=== PATIENT | female | born 1980 | race Caucasian/White ===

== ENCOUNTER 2025-08-27 14:04 | Outpatient (AMB) | payer MEDICAID, SELFPAY ==
--- NOTE | 2025-08-27 14:17 | AMB.OBINITIA ---
Vital Signs 08/27/25 14:20 Height 1.63 m Height Method Stated Weight 103.136 kg Weight Measurement Method Standing Scale BMI 39.0 BP 111/75 Blood Pressure Source Automatic Cuff Blood Pressure Location Right Upper Arm Position Sitting Respiration 18 Pulse 100 Pulse Source Monitor Temp 97.9 F Temp Source Temporal Artery Scan Pulse Oximetry (%) 96 Oxygen Delivery Method Room Air Allergies/Home Meds Allergies & Medications Allergies No Known Allergies Allergy (Verified 08/27/25 14:21) Medication Reconciliation vits no.126-ferrous fum 28 mg iron-folic acid 800 mcg tablet (Classic ) 1 tab PO DAILY 90 days #90 tabs 08/27/25 [Rx] Intake Visit Data Collection New Patient or Established: New Patient (never been to [facility]) Reason for Visit:: OBI Seen by Clinical Staff ONLY (RN/MA): No Customer Operations Associate Required: No Do You Feel Safe at Home: Yes Authorities Contacted: N/A PCP or OBGYN visit in last 3 months: No Hx Now: Yes Are you currently on any form of Control: No Pain Present Currently: No Pain Scale Used: Florentino-Beebe/Numerical Pain scale:: 0 Smoking Status Smoking Status: Never smoker Immunizations Flu Vaccine in the Last 12 Months: No Flu Vaccine Exclusion Criteria: No Exclusion Criteria Questionnaires Covid-19 Vaccine Questionnaire Has patient been vacinated for Covid-19 Have you been vacinated for Covid-19: No PHQ-9 PHQ-2 Over the last 2 weeks, how often have you been bothered by any of the following problems? 1. Little interest or pleasure in doing things: not at all 2. Feeling down, depressed, or hopeless: not at all Total score: 0 PHQ-9 3. Trouble falling or staying asleep, or sleeping too much: Not at all 4. Feeling tired or having little energy: Not at all 5. Poor appetite or overeating: Not at all 6. Feeling bad about yourself - or that you are a failure or have let yourself or your family down: Not at all 7. Trouble concentrating on things, such as reading the newspaper or watching television: Not at all 8. Moving or speaking so slowly that other people could have noticed? - Or the opposite - being so fidgety or restless that you have been moving around a lot more than usual: not at all 9. Thoughts that you would be better off or of hurting yourself in some way: Not at all Total score: 0 If you checked off any problems, how difficult have these problems made it for you to do your work, take care of things at home, or get along with other people?: not difficult at all Source: Developed by Drs. John Busby, Rosemary Diaz, Donnell Musa and colleagues, with an educational samia from [employer]. Depression screen completed yes Social History Living Situation History Marital Status: Legally Lives With: Family Housing: House Tobacco History Smoking Status: Never smoker Second Hand Smoke Exposure: No Alcohol History Alcohol Intake: Never Domestic Abuse History Do You Feel Safe at Home: Yes History of Present Illness HPI Narrative 44 years old at ? 35 weeks by US today states had Us in [facility] in June and was told her EDC is 10/18/2025 she has h/o c sections and also labs from [facility] on 07/29/2025 are c/w amphetamine positive start biweekly NST/BPP OB Initial Visit OB Flowsheet OB Flowsheet Initial Weight: Not Recorded Date <del>?</del> EGA Weight BP Alb Glu CTX Pres Fundal ht FHR Mov Dilation Station Effacement Hx Notes Visit Note 08/27/25 <del>?</del> 32w 3d 103.136 kg 111/75 35 34 144 active Menstrual History Menstrual reliability: unknown Menstrual regularity: irregular Monthly: No OB History : 3 Para: 1 # of Living Children: 1 Delivery History 1st : Delivery complications: STILL UMBILICAL CORD 2nd : date: 01/25/09 sex: male Gestational age at delivery (weeks): 40 Delivery type: Infection History & Risk Evaluation History of STDs: none Genetic Screening & History Genetic Screening/Teratology Counseling - Includes patient, baby's father, or anyone in either family with: 1. Patient's age 35 years or older as of estimated date of delivery: Yes 2. Thalassemia (Occitan, Chinese, Mediterranean, or Background); MCV less than 80: No 3. Neural Tube Defect (Meningomyelocele, Spina Bifida, or Anencephaly): No 4. Congenital Heart Defect: No 5. Down Syndrome: No 6. Cole-Sachs (Ashkenazi Christian, Cajun, Swiss Menominee): No 7. Jimmy Disease (Ashkenazi Christian): No 8. Familial Dysautonomia (Ashkenazi Christian): No 9. Sickle Cell Disease or Trait (): No 10. Hemophilia or other blood disorders: No 11. Muscular Dystrophy: No 12. Cystic Fibrosis: No 13. Tippah's Chorea: No 14. Mental Retardation/Autism: No 15. Other inherited genetic or chromosomal disorder: No 16. Maternal Metabolic Disorder (EG,TYPE 1 Diabetes, PKU): No 17. Patient or baby's father had a child with defects not listed above: No 18. Recurrent loss or a stillbirth: No 19. Medications (including supplements, vitamins, herbs or otc drugs)/illicit/recreational drugs/alcohol since last menstrual period: No 20. Any other: No Infection History Other (see comments) Source: [employer] [place] [employer] Results Objective Laboratory: 07/29/2025 O positive / Rubella NI, RPR NR, HbSAg negative HCV NR HIV NR GC and CT negative Hb 11.2 platelets 333UDS methamphetamine positive One hour GTT is 125 Office Procedures OBC Clinic LOC & Office Proc's Nursing/Assessment Patient Status: Initial/New Patient OB Clinic Nursing Assessment: Medication Reconciliation, Update PMH in EMR and Vital Signs OB Clinic Coordination of Care: Complex Care and Chronic Disease 1-5, Education Complex Pt/Fam, Consent,records obtained, informed consent, Lab and Imaging orders, Results/Orders obtained and Staff clarify orders Special Needs: Heart tones New Patient Charge New Patient Point Assignment: [id number] New Patient Point Charge: WELLNESS ASSISTANT Level 4 ([id number]) Assessment & Plan Diagnosis / Problem List (1) Previous section: Status: Acute (2) : Status: Acute Qualifiers: Weeks of gestation: 32 weeks Qualified Code(s): Z3A.32 - 32 weeks gestation of (3) Late care affecting : Status: Acute Qualifiers: Trimester: third trimester Qualified Code(s): O09.33 - Supervision of with insufficient care, third trimester (4) Advanced maternal age (AMA) in : Status: Acute (5) Uterine size date discrepancy, antepartum: Status: Acute Additional Plan labs next visit add HbA1c and GTT or Random Blood glucose Ordered formal Us from [facility] Ordered NST biweekly
[2025-08-27 14:20] VITALS: BP 111/75; PULSE 100; RESP 18; TEMP 36.6; O2SAT 96; BMI 39.0
== END 2025-08-27 15:09 | disposition home or self-care (01) ==
LOC: HODSOBC 14:04
PROVIDERS: Supervising Provider Obstetrics & Gynecology; Visit Provider Obstetrics & Gynecology
DX: O09.293 Supervision of pregnancy with other poor reproductive or obstetric history, third trimester (principal); O34.219 Maternal care for unspecified type scar from previous cesarean delivery; O09.33 Supervision of pregnancy with insufficient antenatal care, third trimester; O09.523 Supervision of elderly multigravida, third trimester; O09.893 Supervision of other high risk pregnancies, third trimester; O26.843 Uterine size-date discrepancy, third trimester; Z3A.32 32 weeks gestation of pregnancy
CPT/HCPCS: 99204; G0463

== ENCOUNTER → 2025-09-02 13:23 | Outpatient (AMB) | payer MEDICAID, SELFPAY ==
[2025-09-02 13:54] VITALS: BP 124/76; PULSE 102; RESP 18; TEMP 36.2; O2SAT 98; BMI 39.7
--- NOTE | 2025-09-02 13:54 | OBCLNT_ITS ---
Vital Signs 09/02/25 13:54 Height 1.63 m Height Method Stated Weight 105.687 kg Weight Measurement Method Standing Scale BMI 39.7 BP 124/76 Blood Pressure Source Automatic Cuff Blood Pressure Location Left Upper Arm Position Standing Respiration 18 Pulse 102 H Pulse Source Monitor Temp 97.2 F Temp Source Oral Pulse Oximetry (%) 98 Oxygen Delivery Method Room Air Allergies/Home Meds Allergies & Medications Allergies No Known Allergies Allergy (Verified 09/02/25 13:58) Medication Reconciliation vits no.126-ferrous fum 28 mg iron-folic acid 800 mcg tablet (Classic ) 1 tab PO DAILY 90 days #90 tabs 08/27/25 [Rx Confirmed 09/02/25] Intake Visit Data Collection New Patient or Established: Established Patient (seen at [facility] within 3 years) Reason for Visit:: OBC Seen by Clinical Staff ONLY (RN/MA): No Oil Expeller Required: No Do You Feel Safe at Home: Yes Authorities Contacted: N/A PCP or OBGYN visit in last 3 months: Yes Date of Last PCP or OBGYN visit: 08/27/25 Hx Now: Yes Are you currently on any form of Control: No Pain Present Currently: No Pain Scale Used: Florentino-Beebe/Numerical Pain scale:: 0 Smoking Status Smoking Status: Never smoker Immunizations Flu Vaccine in the Last 12 Months: No Flu Vaccine Exclusion Criteria: Refused by Patient Questionnaires Covid-19 Vaccine Questionnaire Has patient been vacinated for Covid-19 Have you been vacinated for Covid-19: No PHQ-9 PHQ-2 Over the last 2 weeks, how often have you been bothered by any of the following problems? 1. Little interest or pleasure in doing things: not at all 2. Feeling down, depressed, or hopeless: not at all Total score: 0 PHQ-9 3. Trouble falling or staying asleep, or sleeping too much: Not at all 4. Feeling tired or having little energy: Not at all 5. Poor appetite or overeating: Not at all 6. Feeling bad about yourself - or that you are a failure or have let yourself or your family down: Not at all 7. Trouble concentrating on things, such as reading the newspaper or watching television: Not at all 8. Moving or speaking so slowly that other people could have noticed? - Or the opposite - being so fidgety or restless that you have been moving around a lot more than usual: not at all 9. Thoughts that you would be better off or of hurting yourself in some way: Not at all Total score: 0 If you checked off any problems, how difficult have these problems made it for you to do your work, take care of things at home, or get along with other people?: not difficult at all Source: Developed by Drs. John Busby, Rosemary Diaz, Donnell Musa and colleagues, with an educational samia from [employer]. Depression screen completed yes Social History Living Situation History Marital Status: Single Lives With: Family Housing: House Tobacco History Smoking Status: Never smoker Second Hand Smoke Exposure: No Alcohol History Alcohol Intake: Never Domestic Abuse History Do You Feel Safe at Home: Yes Care OB Visit Log OB Flowsheet Initial Weight: Not Recorded Date -?-?-?-?-?-?-?-?-?-?-?-?- EGA Weight BP Alb Glu CTX Pres Fundal ht FHR Mov Dilation Station Effacement Hx Notes Visit Note 08/27/25 -?-?-?-?-?-?-?-?-?-?-?-?- 32w 3d 103.136 kg 111/75 35 34 144 active GREGORY Calculator Estimated Delivery Date Method Current WG Current Estimate 10/19/25 Ultrasound #1 33w 2d Other Estimates 10/01/25 Ultrasound #2 35w 6d Comments: Patient not seen today as I had to leave to the hospital Expected Delivery Route/Plan c section at 39 weeks / will be 39 weeks on 10/12/2025 / patient needs to do her labs and another US Notes Visit Date: 08/27/25 Last Updated by: Roxana Garcia MD AMA, 44 years old / late care / lab positive amphetamines and prior c section at 32 .3 weeks by Us dated 07/29/2025 at 28.2 weeks , 34 weeks by exam and is 35 weeks on limited US today S>D / late care request US from [facility]/ received later today and was done 07/29/2025 refer for formal US for dating and also start NST Biweekly / will need evaluation for GDM next visit Needs HbA1c and Glucose test next visit follow up in 1 week Office Procedures OBC Clinic LOC & Office Proc's Nursing/Assessment Patient Status: Established Patient OB Clinic Nursing Assessment: Medication Reconciliation, Update PMH in EMR and Vital Signs OB Clinic Coordination of Care: Consent,records obtained, informed consent, Education Simp Pt/Fam, Lab and Imaging orders, Results/Orders obtained and Staff clarify orders Special Needs: Heart tones Established Patient Charge Established Patient Point Assignment: 110 Established Patient Point Charge: EP Level 3 (80-115)
== END ==
LOC: HODSOBC 13:23
PROVIDERS: Supervising Provider Obstetrics & Gynecology; Visit Provider Obstetrics & Gynecology
DX: O34.212 Maternal care for vertical scar from previous cesarean delivery (principal)
CPT/HCPCS: 99213; G0463

== ENCOUNTER 2025-10-04 14:02 | Outpatient (AMB) | payer MEDICAID, SELFPAY ==
--- NOTE | 2025-10-04 14:07 | OBCLNT_ITS ---
Vital Signs 10/04/25 14:20 Height 1.63 m Height Method Stated Weight 108.012 kg Weight Measurement Method Standing Scale BMI 40.6 BP 133/85 H Blood Pressure Source Automatic Cuff Blood Pressure Location Left Upper Arm Position Sitting Respiration 18 Pulse 100 Pulse Source Monitor Temp 97.2 F Temp Source Oral Pulse Oximetry (%) 98 Oxygen Delivery Method Room Air Allergies/Home Meds Allergies & Medications Allergies No Known Allergies Allergy (Verified 10/12/25 14:45) Medication Reconciliation vits no.126-ferrous fum 28 mg iron-folic acid 800 mcg tablet (Classic ) 1 tab PO DAILY 90 days #90 tabs 08/27/25 [Rx Confirmed 10/04/25] docusate sodium 100 mg capsule 100 mg PO BID 10 days #20 caps 10/12/25 [Rx] hydrocodone 5 mg-acetaminophen 325 mg tablet 1 tab PO Q6H PRN Patient rated pain 7 to 8 7 days #12 tabs 10/12/25 [Rx] ibuprofen 800 mg tablet 800 mg PO Q8HR PRN Abdominal Pain 10 days #30 tabs 10/12/25 [Rx] Immunizations Immunizations Flu Vaccine in the Last 12 Months: No Flu Vaccine Exclusion Criteria: No Exclusion Criteria Care OB Visit Log OB Flowsheet Initial Weight: Not Recorded Date -?-?-?-?-?-?-?-?-?-?-?-?- EGA Weight BP Alb Glu CTX Pres Fundal ht FHR Mov Dilation Station Effacement Hx Notes Visit Note 08/27/25 -?-?-?-?-?-?-?-?-?-?-?-?- 32w 3d 103.136 kg 111/75 35 34 144 active 10/04/25 -?-?-?-?-?-?-?-?-?-?-?-?- 37w 6d 108.012 kg 133/85 cephalic 38 148 active GREGORY Calculator Estimated Delivery Date Method Current WG Current Estimate 10/19/25 Ultrasound #1 39w 2d Other Estimates 10/01/25 Ultrasound #2 41w 6d Expected Delivery Route/Plan c section at 39 weeks / will be 39 weeks on 10/12/2025 / patient needs to do her labs and another US Notes Visit Date: 10/04/25 Last Updated by: Roxana Garcia MD patient had an US with [facility] on 09/13/2025 and she was 36 weeks and best EDC based on early US is 10/18/2025 / she is 39 weeks on 10/19/2025 based on dating we have / Plan repeat LTCS on 10/12/2025 at 1230 pm patient is unable to come for NST/BPP / she lives in [place] / she is stating she is finding it hard to come to [place]. Adv to keep her records in hand in case she needs to go as an emergency to the nearest hospital . with previous 1 c section R/B and options of repeat LTCS vs vaginal delivery discussed with patient Visit Date: 08/27/25 Last Updated by: Roxana Garcia MD AMA, 44 years old / late care / lab positive amphetamines and prior c section at 32 .3 weeks by Us dated 07/29/2025 at 28.2 weeks , 34 weeks by exam and is 35 weeks on limited US today S>D / late care request US from [facility]/ received later today and was done 07/29/2025 refer for formal US for dating and also start NST Biweekly / will need evaluation for GDM next visit Needs HbA1c and Glucose test next visit follow up in 1 week Office Procedures OBC Clinic LOC & Office Proc's Nursing/Assessment Patient Status: Established Patient OB Clinic Nursing Assessment: Medication Reconciliation, Update PMH in EMR and Vital Signs OB Clinic Coordination of Care: Consent,records obtained, informed consent, Education Simp Pt/Fam, Lab and Imaging orders, Results/Orders obtained and Staff clarify orders Special Needs: Heart tones Established Patient Charge Established Patient Point Assignment: 110 Established Patient Point Charge: EP Level 3 (80-115) Assessment & Plan Diagnosis / Problem List (1) Advanced maternal age (AMA) in : Status: Acute (2) Previous section: Status: Acute (3) Late care affecting : Status: Acute Qualifiers: Trimester: third trimester Qualified Code(s): O09.33 - Supervision of with insufficient care, third trimester Additional Assessment Us done at [facility] on 09[facility]13/2025 confirms her dates Additional Plan Patient was given the reason for proceeding with surgery. She was given the risk benefits and options. She chose to proceed with the surgery. Risks of surgery to include risk of infection bleeding, possible injury to the surrounding organs like the urinary bladder, intestines, ureter, uterus, tubes, ovaries, nerves, blood vessels, possible risk of wound dehiscence later on or hernia development later on in future. However the surgery is done when the benefits outweigh the risks Possible risks of blood transfusion and options were also discussed. All questions answered Patient is willing to proceed with surgery.Repeat LTCS scheduled for 10/12/2025 at 12.30 and preop instructions given patient states she cannot come for NST / I cannot order NST at [place] as I do not have priveleges there . Patient can transfer care , but she states no one will take her / kick count nd labor precautions given
[2025-10-04 14:20] VITALS: BP 133/85; PULSE 100; RESP 18; TEMP 36.2; O2SAT 98; BMI 40.6
== END 2025-10-04 14:54 | disposition home or self-care (01) ==
PROVIDERS: Supervising Provider Obstetrics & Gynecology; Visit Provider Obstetrics & Gynecology
DX: O09.523 Supervision of elderly multigravida, third trimester (principal); O09.293 Supervision of pregnancy with other poor reproductive or obstetric history, third trimester; O09.33 Supervision of pregnancy with insufficient antenatal care, third trimester; O34.211 Maternal care for low transverse scar from previous cesarean delivery; Z3A.37 37 weeks gestation of pregnancy
CPT/HCPCS: 99213; G0463

== ENCOUNTER 2025-10-12 09:53 | Inpatient (IN) | payer MEDICAID, SELFPAY ==
[2025-10-12] VITALS (19 sets, daily range): BP systolic 0–152; BP diastolic 0–114; PULSE 82–99; RESP 14–21; TEMP 36.6–36.7; O2SAT 95–100; BMI 39.9
--- NOTE | 2025-10-12 10:56 | ESHP_ITS ---
Documentation for date of: 10/12/25 OB Labor/Induct. HPI History of Present Illness Chief complaint: scheduled : 3 Para: 2 Term pregnancies: 2 pregnancies: 0 Living children: 1 History of Abortions: Spontaneous and Elective: 0 History of Vaginal deliveries: 0 History of sections: Yes History of : No GREGORY: 10/19/25 Gestational Age (weeks): 39 Gestational Age (days): 0 History of present illness: Patient presents for scheduled section. No regular/painful ctx or LOF. No vaginal bleeding. Normal movement. No fevers/chills. History of Present Dating criteria: based on 3rd trimester US only Adequate Care: No (Late to care first visit in July) Ultrasounds: other (limited OB ultrasound 07/29 for dating, US with [facility] on 09/13 at 36 week) Narrative: Hx of term 2008 AMA, age 45 Insufficient care Current BMI 39.9 Denies illicit drug use, but +amphetamines on 07/29 test Hx of during labor with first Labs Maternal Blood Type: O Pos Narrative: Laboratory: 07/29/2025 O positive / Rubella NI, RPR NR, HbSAg negative HCV NR HIV NR GC and CT negative Hb 11.2 platelets 333UDS methamphetamine positive One hour GTT is 125 Review of Systems Review of Systems Narrative Review of Systems: Review of Systems Systems Reviewed: All systems reviewed, normal except as documented Constitutional Constitutional: Denies body ache(s), Denies chills, Denies fever(s) and Denies headache(s) ENT Ears, Nose, Mouth, and Throat: Denies headache(s) and Denies vertigo Cardiovascular Cardiovascular: Denies chest pain, Denies palpitations, Denies dyspnea and Denies syncope Respiratory Respiratory: Denies cough, Denies dyspnea Gastrointestinal Gastrointestinal: Denies nausea and Denies vomiting Neurologic Neurologic: Denies convulsions, Denies headache(s), Denies other visual disturbances, Denies syncope and Denies vertigo Past Medical History Family History OTHER FAMILY HX: Mother- HTN, heart disease Surgical History SURGICAL: Positive Section OTHER SURGICAL HX: cholecystectomy Social History SOCIAL: Denies illicit drug use, but +amphetamines on 07/29 test No tobacco or ETOH use. Transportation issues. Past Medical History Comments PMH COMMENT: Current BMI 39.9 Meds Home Medications and Allergies Allergies Allergy/AdvReac Type Severity Reaction Status Date / Time No Known Allergies Allergy Verified 10/04/25 14:08 OB Exam Physical Exam Vital signs: Pulse BP 95 121/93 H 10/12/25 10:32 10/12/25 10:32 Narrative: General: well developed, well nourished, no acute distress, conversant Cardiac: normal heart rate Lungs: breathing without distress Abdomen: soft, obese, gravid, non-tender, no rebound or guarding Extremities: no pain with palpation of calves Detailed Labor and Delivery Exam Membranes: intact Baseline heart rate: 120 monitor accelerations: 15x15 monitor decelerations: None FCI variability: Moderate (11-25) Contraction frequency (min): irregular OB Results Labs 10/12/25 10:40 OB Assessment & Plan Assessment and Plan (1) Previous section: Status: Acute Assessment and plan: Albina is a 45yo with SIUP at 39&0wk presenting for scheduled RLTCS per Dr. Garcia. Vitals wnl, benign exam. Reassuring assessment. PMhx/ complicated by: Hx of term 2008 AMA, age 45 Insufficient care Current BMI 39.9 Denies illicit drug use, but +amphetamines on 07/29 test Hx of infant during labor with first Plan: -Admit to L&D -Establish IV, routine labs -NPO -Counseled/consented re: section. Discussed all r/b/a to include: bleeding (possible need for blood transfusion), infection (subcutaneous, deeper layers or uterine with possible need for prolonged admission or re-admission for IV antibiotics, I&D with wound packing, etc), injury to nearby structures such as bladder, bowel, ureters, blood vessels, nerves with possible need for re- operation, pain, injury to baby, hysterectomy, DVT/PE, . Answered all questions to patient and their support person's satisfaction. -IV abx ppx: ancef 2g IV x1 -Nursing and anesthesia team aware of plan for section. Will proceed to OR when team is ready (2) Late care affecting : Status: Acute (3) Advanced maternal age (AMA) in : Status: Acute (4) Substance abuse complicating , antepartum: Status: Acute (5) Obesity affecting in third trimester: Status: Acute (2) Late care affecting Qualifiers: Trimester: third trimester Qualified Code(s): O09.33 - Supervision of with insufficient care, third trimester (5) Obesity affecting in third trimester Qualifiers: Obesity type affecting : unspecified obesity Qualified Code(s): O 99.213 - Obesity complicating , third trimester
[2025-10-12 11:01] LABS: Basophils # (Auto) 0.0 Thou/mm3 (0.0-0.2); Basophils % (Auto) 0 % (0-2.5); Eosinophils # (Auto) 0.2 Thou/mm3 (0.0-0.5); Eosinophils % (Auto) 3 % (0-10); Hematocrit 35.9 % (36.0-46.0); Hemoglobin 12.4 g/dL (12.0-16.0); Immature Granulocytes Auto 0.02 Thou/mm3 (0.00-0.00); Lymphocytes # (Auto) 1.3 Thou/mm3 (1.0-4.8); Lymphocytes % (Auto) 18 % (10-50); Mean Corpuscular HGB Conc 34.5 g/dl (31.0-37.0); Mean Corpuscular Hemoglobin 31.5 pg (25.0-35.0); Mean Corpuscular Volume 91 fL (80-100); Monocytes # (Auto) 0.5 Thou/mm3 (0.0-0.8); Monocytes % (Auto) 7 % (0-12); Neutrophils # (Auto) 4.9 Thou/mm3 (1.8-7.7); Neutrophils % (Auto) 71 % (37-80); Nucleated Red Blood Cell # 0.00 Thou/mm3 (0.00-0.00); Nucleated Red Blood Cell % 0 /100 WBC (0); Platelet Count 244 Thou/mm3 (140-440); RDW Standard Deviation 50.1 fL (36.4-46.3); Red Blood Count 3.94 Miln/mm3 (4.00-5.20); White Blood Count 6.9 Thou/mm3 (3.6-11.0)
[2025-10-12] MEDS: ceFAZolin/D5W 2 GM IV 2 GM/100 ML BAG IV ×2 (12:15→20:20)
[2025-10-12] MEDS: FAMOTIDINE INJ 10 MG/ML VIAL 2 ML 20 MG IV (12:16)
[2025-10-12] MEDS: METOCLOPRAMIDE INJ 5 MG/ML VIAL 2 ML 10 MG IVP (12:16)
[2025-10-12 13:20] LABS: Syphilis Nonreactive (Nonreactive)
--- NOTE | 2025-10-12 14:38 | ESOP_ITS ---
Operative Note - EXECUTIVE OFFICE MANAGER Procedure Date of procedure: 10/12/25 Procedure Performed: Repeat low transverse section Indication: Albina is a 45yo [id number] with SIUP at 39w0d presenting for scheduled RLTCS. She has history of 1 prior section. Pre-Op diagnosis: SIUP at 39w0d Hx of term 2008 AMA, age 45 Insufficient care Current BMI 39.9 Denies illicit drug use, but +amphetamines on 07/29 test Hx of infant during labor with first Post-Op diagnosis: SIUP at 39w0d Hx of term 2008 AMA, age 45 Insufficient care Current BMI 39.9 Denies illicit drug use, but +amphetamines on 10 test Hx of during labor with first Anesthesia type: Spinal Fluids: crystalloid and other (albumin ) Fluid amount (mL): 3,250 Urine output (mL): 100 Estimated blood loss (ml): 900 Findings: Clear amniotic fluid. Female infant in OT presentation, apgars 8/9, weight 8lb4oz. TOB 13:09 on 10/12/25. Normal appearing uterus, fallopian tubes and ovaries. Minimal scarring intra-abdominally from prior . Narrative: After obtaining informed consent, the patient was taken to the operating room. There was reassuring heart rate tracing prior. Spinal anesthesia was administered. A rader catheter was placed and bilateral sequential compression devices were placed. She was then prepped and draped in the normal sterile fashion in the dorsal supine position with left lateral tilt. A timeout was performed to confirm patient name, date of , procedure and indication. The team was in agreement. Spinal anesthesia was found to be adequate using an Allis clamp. Anceph 2g IV x1 were given for prophylaxis. A Pfannenstiel skin incision was then made with the scalpel and carried through to the underlying layer of fascia. The fascia was incised in the midine and the incision was extended laterally with the Schafer scissors. The superior and inferior aspects of the fascial incision were then grasped with the Carmen clamps, elevated and the underlying rectus muscles were dissected off bluntly and sharply. The peritoneum was entered digitally and the rectus muscles were then in the midline. The peritoneal incision was then extended superiorly and inferiorly with good visualization of the bladder. An Dino retractor was placed. The lower uterine segment was scored in a transverse fashion with the scalpel. The uterus was then entered bluntly and the incision was extended with traction with clear amniotic fluid noted. The infant's head was elevated to the level of the incision. Fundal pressure was applied, but head did not immediately deliver, so MightyVac was applied at the flexion point of the head and pumped up to the green zone- one brief pull performed and head immediately delivered. No pop off. Suction released. Fundal pressure was applied. The head was delivered atraumatically in the OT position. The anterior shoulder, posterior shoulder and corpus were delivered without difficulty. The nose and mouth were suctioned with bulb suction and cord was clamped x2 and cut. Infant was vigorous. The was handed off to the awaiting nursing team. Cord blood obtained for typing. The placenta was then removed with uterine massage and cord traction. The uterus was exteriorized and cleared of all clot and debris. The uterine incision was repaired with 0-monocryl suture in a running locking fashion. A few figure of 8's were placed overlying some areas of continued oozing along the hysterotomy using O-monocryl. The uterine incision was inspected and hemostasis was noted. In addition to standard IV pitocin, patient received TXA 1g IV x1 and methergine 0.2mg IM x1 with good tone achieved and maintained. The posterior cul-de-sac was suctioned and the uterus returned to the abdomen. The gutters were cleared of all clot. Dino retractor was removed. The peritoneum was closed using a 3-0 vicryl suture in running fashion. The rectus muscles were inspected and small areas of oozing were cauterized. The fascia was reapproximated with 0-Vicryl suture in a running fashion. The subcutaneous tissue was then copiously irrigated. Roma's fascia was reapproximated in 2 layers using 3-0 vicryl suture in a running fashion. The skin was reapproximated with 4-0 monocryl suture in running subcuticular fashion. The incision was cleaned with a wet lap and dried with a dry lap. Yjvstcqyu-[id number]-tdjv bandage was applied overlying the incision and activated according to route vending machine servicer instructions. Fundus was firm at the umbilicus. Sponge, lap and needle counts were correct x2. Cytotec 800mcg GA placed after the procedure. The procedure was without complications and the patient tolerated the procedure well. She was taken to recover further on Labor and Delivery, in stable condition. Surgical staff Operation Date: 10/12/25 12:45 Case Staff MULE DRIVER: Michael Emery RN First Assistant: Marva Valencia Diagnosis Discharge Diagnosis (1) delivery delivered: Status: Acute (2) Previous section: Status: Acute (3) Substance abuse complicating , antepartum: Status: Acute (4) Late care affecting : Status: Acute (5) Advanced maternal age (AMA) in : Status: Acute (6) Obesity affecting in third trimester: Status: Acute Problem List Completed Was Problem List Reviewed/Reconciled?: Yes (4) Late care affecting Qualifiers: Trimester: third trimester Qualified Code(s): O09.33 - Supervision of with insufficient care, third trimester (6) Obesity affecting in third trimester Qualifiers: Obesity type affecting : unspecified obesity Qualified Code(s): O99.213 - Obesity complicating , third trimester
[2025-10-12 15:06] LABS: Amphetamine/Metham Scrn,Ur OB Negative (Negative); Benzoylecgonine Screen, Ur OB Negative (Negative); Opiate Screen,Urine OB Negative (Negative); THC Screen,Urine OB Negative (Negative)
[2025-10-12] MEDS: KETOROLAC INJ 30 MG/ML VIAL IVP (17:58)
[2025-10-12 22:44] LABS: Basophils # (Auto) 0.0 Thou/mm3 (0.0-0.2); Basophils % (Auto) 0 % (0-2.5); Eosinophils # (Auto) 0.1 Thou/mm3 (0.0-0.5); Eosinophils % (Auto) 1 % (0-10); Hematocrit 31.6 % (36.0-46.0); Hemoglobin 11.0 g/dL (12.0-16.0); Immature Granulocytes Auto 0.02 Thou/mm3 (0.00-0.00); Lymphocytes # (Auto) 1.5 Thou/mm3 (1.0-4.8); Lymphocytes % (Auto) 17 % (10-50); Mean Corpuscular HGB Conc 34.8 g/dl (31.0-37.0); Mean Corpuscular Hemoglobin 31.6 pg (25.0-35.0); Mean Corpuscular Volume 91 fL (80-100); Monocytes # (Auto) 0.5 Thou/mm3 (0.0-0.8); Monocytes % (Auto) 6 % (0-12); Neutrophils # (Auto) 6.7 Thou/mm3 (1.8-7.7); Neutrophils % (Auto) 76 % (37-80); Nucleated Red Blood Cell # 0.00 Thou/mm3 (0.00-0.00); Nucleated Red Blood Cell % 0 /100 WBC (0); Platelet Count 220 Thou/mm3 (140-440); RDW Standard Deviation 49.1 fL (36.4-46.3); Red Blood Count 3.48 Miln/mm3 (4.00-5.20); White Blood Count 8.8 Thou/mm3 (3.6-11.0)
[2025-10-13] MEDS: KETOROLAC INJ 30 MG/ML VIAL IVP ×3 (00:03→11:16)
[2025-10-13] MEDS: OXYTOCIN in NS 20 units 20 UNIT/1,000 ML BAG 125 UNIT IV (00:04)
[2025-10-13 00:35] VITALS: BP 136/84; PULSE 86; RESP 18; TEMP 37.1; O2SAT 98
[2025-10-13] MEDS: ceFAZolin/D5W 2 GM IV 2 GM/100 ML BAG IV (03:31)
[2025-10-13 03:41] VITALS: BP 123/72; PULSE 94; RESP 16; TEMP 36.7; O2SAT 95
--- NOTE | 2025-10-13 05:57 | PC.NURSE ---
Pt is refusing to get up stating she is tired and she wanted to sleep more.
[2025-10-13 08:00] VITALS: BP 108/69; PULSE 89; RESP 18; TEMP 36.7; O2SAT 97
--- NOTE | 2025-10-13 09:20 | CHAP ---
Visited with mom and gave a blessing on and family.
--- NOTE | 2025-10-13 10:00 | PC.SS ---
WILDERNESS GUIDE conducted bedside contact with the patient to address nursing referral indicating patient possessed history of anxiety and was positive for methamphetamine during .? Toxicology screening at admission negative.? WILDERNESS GUIDE introduced self and role.? Present with patient was son Alex Trotter.? Patient gave consent for son to be present during discussion.? WILDERNESS GUIDE discussed basis of referral.? Patient denied willingly taking methamphetamine during .? Patient reported taking weight loss substance only.? Per patient, substance might be basis of positive result of methamphetamine.? Patient stated 1 time use of substance for weight control.? Patient added not knowing until late into stage.? Patient stated that she does not possess a history of anxiety but that anxiety was heightened during admission due to having to undergo procedure.? Patient reports not engaging in counseling services.? Patient denies no impairments with daily functioning.? Infant, Gail; is the patient?s second child.? Patient plan on combo feeding the infant.? Patient is receiving WIC, SNAP.? Patient is not receiving TANF.? FOB, Nahum Loredo; will not be involved in the rearing of the .? OB services conducted by Dr. Garcia.? Patient reports consistency with OB appointments.? Patient denies history with CWS.? Denies history of domestic violence episodes and denies history of alcohol/drug abuse.? Patient has access to appropriate supplies and equipment; to include a car seat.? Friend will provide transportation upon discharge.? Patient describes possessing support system consisting of friend and extended family.? WILDERNESS GUIDE provided the patient with community resources to include [facility] and Warm Line.? No further intervention required at this time, social services director will be available to address any further concerns.? WILDERNESS GUIDE updated bedside nurse.?
--- NOTE | 2025-10-13 10:39 | PC.NURSE ---
Cleared by Sen from social science instructor
[2025-10-13 11:20] VITALS: BP 122/83; PULSE 87; RESP 18; TEMP 36.7; O2SAT 97
--- NOTE | 2025-10-13 12:05 | PC.NURSE ---
High risk referral faxed
--- NOTE | 2025-10-13 13:07 | ESPR_ITS ---
Subjective Subjective Interval history: POD #1 s/p repeat LTCS on 10/12/2025 Dating criteria: based on 3rd trimester US only Adequate Care: No (Late to care first visit in July) Ultrasounds: other (limited OB ultrasound 07/29 for dating, US with [facility] on 09/13 at 36 week) Narrative: Hx of term 2008 AMA, age 45 Insufficient care Current BMI 39.9 Denies illicit drug use, but +amphetamines on 07/29 test Hx of infant during labor with first Labs Maternal Blood Type: O Pos Exam Vital Signs Temp Pulse Resp BP Pulse Ox O2 Del Method 98.1 F 87 18 122/83 97 Room Air 10/13/25 11:20 10/13/25 11:20 10/13/25 11:20 10/13/25 11:20 10/13/25 11:20 10/13/25 11:20 Narrative Exam alert x3 chest clear CVS RRR NO thyromegaly Uterus is nontender Uterus is firm/ appropriate size Just below the umbilicus Bowel sounds present Abdomen soft no hernias noted/no CVAT Incision CDI No drainage Appropriately tender No calf tenderness Edema mild Objective Labs 10/12/25 22:24 Labs: Laboratory Results - last 24 hr 10/12/25 10/12/25 10/12/25 12:26 12:45 22:24 WBC 8.8 RBC 3.48 L Hgb 11.0 L Hct 31.6 L MCV 91 MCH 31.6 MCHC 34.8 RDW Std Deviation 49.1 H Plt Count 220 Neut % (Auto) 76 Lymph % (Auto) 17 [place] % (Auto) 6 Eos % (Auto) 1 Baso % (Auto) 0 Neut # (Auto) 6.7 Lymph # (Auto) 1.5 [place] # (Auto) 0.5 Eos # (Auto) 0.1 Baso # (Auto) 0.0 Immature Gran # (Auto) 0.02 H Absolute Nucleated RBC 0.00 Immature Gran % 0 Nucleated RBC % 0 Urine Opiates Screen Negative U Amphetamin/Meth Scrn Negative U Cocaine Metab Screen Negative U Marijuana (THC) Screen Negative Syphilis Serology Nonreactive Assessment & Plan Problem List (1) delivery delivered: Status: Acute (2) Previous section: Status: Acute (3) Substance abuse complicating , antepartum: Status: Acute (4) Late care affecting : Status: Acute (5) Advanced maternal age (AMA) in : Status: Acute (6) Obesity affecting in third trimester: Status: Acute Assessment Comment Assessment comment: POD #1 s/p repeat LTCS on 10/12/2025/ doing well / not passed flatus yet but no nausea and tolerating clears / Mcmanus out and voiding spontaneously / Hb 12.4 to 11 / Patient ambulating and has no complaints Dating criteria: based on 3rd trimester US only Adequate Care: No (Late to care first visit in July) Ultrasounds: other (limited OB ultrasound 07/29 for dating, US with [facility] on 09/13 at 36 week) Narrative: Hx of term 2009 AMA, age 45 Insufficient care Current BMI 39.9 Denies illicit drug use, but +amphetamines on 07/29 test Hx of infant during labor with first Labs Maternal Blood Type: O Pos Plan Comment Plan Comment: doing well / likely discharge am Time Spent With Patient Time: Total time spent is greater than 50% in coordination of care (as documented) at patient's floor/unit and/or counseling patient:
[2025-10-13] MEDS: HYDROcodone/APAP 5/325 TABLET 1 TAB PO (14:56)
[2025-10-13 15:30] VITALS: BP 123/74; PULSE 90; RESP 18; TEMP 37.2; O2SAT 97
--- NOTE | 2025-10-13 16:10 | PC.SS ---
YOUTH AGENT informed bedside nurse that patient is cleared from social services designee. Community resources provided.
[2025-10-13 21:09] VITALS: BP 129/81; PULSE 90; RESP 17; TEMP 36.4; O2SAT 95
[2025-10-13] MEDS: IBUPROFEN TAB 400 MG TABLET 800 MG PO (21:40)
[2025-10-14 00:50] VITALS: BP 150/80; PULSE 72; RESP 17; TEMP 36.6; O2SAT 98
[2025-10-14 05:02] VITALS: BP 112/71; PULSE 87; RESP 16; TEMP 36.2; O2SAT 98
[2025-10-14] MEDS: IBUPROFEN TAB 400 MG TABLET 800 MG PO (05:05)
[2025-10-14 08:00] VITALS: BP 131/81; PULSE 80; RESP 20; TEMP 36.9; O2SAT 99
--- NOTE | 2025-10-14 08:26 | ESDS_ITS ---
DS: Providers Provider Date of admission: 10/12/25 09:53 Primary care physician: Physician No Primary/Family Admitting Provider: Anitha Rossi MD Attending Provider on Admission: Arturo Reina MD Consults: 10/12/25 14:32 Referral Routine Comment: Attending Provider on DC: Arturo Reina MD Discharging Provider: Arturo Reina MD DS: Diagnosis Discharge Diagnosis (1) delivery delivered: Status: Acute (2) Obesity affecting in third trimester: Status: Acute (3) Uterine size date discrepancy, antepartum: Status: Acute Problem List Completed Was Problem List Reviewed/Reconciled?: Yes Summary/Hosp Course Brief History: Patient presents for scheduled section. No regular/painful ctx or LOF. No vaginal bleeding. Normal movement. No fevers/chills. Peripartum Data Delivery Method: Low Transverse Procedures: Procedures Operation Date: 10/12/25 12:45 Actual Procedure Side Surgeon p in OB Not Applicable Anitha Rossi MD Time Spent with Patient Time attestation: Total time spent providing and/or coordinating discharge services: Exam Vital Signs Temp Pulse Resp BP Pulse Ox O2 Del Method 97.2 F 87 16 112/71 98 Room Air 10/14/25 05:02 10/14/25 05:02 10/14/25 05:02 10/14/25 05:02 10/14/25 05:02 10/14/25 05:02 Discharge Plan Plan Patient Disposition: HOME (Self Care) Patient condition on transfer: Stable Prescriptions/Referrals Prescriptions/Med Rec: New hydrocodone-acetaminophen 5-325 mg Tablet 1 tab PO Q6H MDD 4 tablets PRN (Reason: Patient rated pain 7 to 8) 7 Days Qty: 12 0RF docusate sodium 100 mg Capsule 100 mg PO BID 10 Days Qty: 20 0RF ibuprofen 800 mg tablet 800 mg PO Q8HR PRN (Reason: Abdominal Pain) 10 Days Qty: 30 0RF Continued Classic 28 mg iron- 800 mcg tablet 1 tab PO DAILY 90 Days Qty: 90 6RF Referrals: No Primary/Family,Physician [Primary Care Provider] Patient/Caregiver Discharge Instructions Discharge Activity: activity as tolerated and other Other Discharge Activity Instructions:: vaginal rest and no heavy lifting more than 10 pounds for 6 [address] while taking narcotic. keep incision clean and dry, do not submerge. Other Discharge Diet Instructions: regular Education Materials: C Section Dc Print Language: Moroccan Activity Restrictions/Additional Instructions: follow up with Dr. Garcia in 1 to 2 weeks for incision check, call clinic to schedule appointment Stand Alone Forms: Chen Award Info., Patient Portal Info Letter Discharge Order Discharge Orders: Discharge (Routine); Ordered 10/14/25 Ordered By: Arturo Reina Planned Discharge Date 10/14/25 (2) Obesity affecting in third trimester Qualifiers: Obesity type affecting : unspecified obesity Qualified Code(s): O99.213 - Obesity complicating , third trimester
--- NOTE | 2025-10-14 08:26 | PD.LDPPPRG ---
Subjective Subjective Interval history: Delivery type: Patient doing well this morning. No acute complaints. Ambulating, tolerating p.o., and voiding without difficulty. HTN/Pre-E screen negative: No CP, SOB, PETTIT, visual changes, RUQ pain. : Yes Lochia: diminishing Bowel: Flatus + / BM + UOP: Voiding freely Exam Vital Signs Temp Pulse Resp BP Pulse Ox O2 Del Method 97.2 F 87 16 112/71 98 Room Air 10/14/25 05:02 10/14/25 05:02 10/14/25 05:02 10/14/25 05:02 10/14/25 05:02 10/14/25 05:02 Constitutional Constitutional: no acute distress Routine HEENT Exam Head: Present normocephalic and atraumatic Eye: Present EOMI and PERRL ENT: Present mucous membranes moist Routine Neck Exam Neck: Present supple and trachea midline Routine Respiratory Exam Respiratory: Present chest non-tender, lungs clear, normal breath sounds and no resp distress Routine Cardiovascular Exam Cardiovascular: Present RRR Routine Abdominal Exam Abdominal: Present soft and normoactive bowel sounds Routine Extremities Exam Extremities: Present full ROM Routine Skin Exam Skin: Present intact, dry and warm Routine Neurological Exam Neurological: Present alert, oriented X3 and CN II-XII intact Routine Psychiatric Exam Psychiatric: Present normal affect and normal thought process Objective Labs 10/12/25 22:24 Assessment & Plan Problem List (1) delivery delivered: Status: Acute Assessment and plan: PPD/POD#2 1. Continue routine care 2. Transition to PO meds. 3. Encourage to ambulate/ breast-feed 4. Anticipate discharge home today. (2) Previous section: Status: Acute (3) Substance abuse complicating , antepartum: Status: Acute (4) Late care affecting : Status: Acute (5) Advanced maternal age (AMA) in : Status: Acute (6) Obesity affecting in third trimester: Status: Acute Time Spent With Patient Time: Total time spent is greater than 50% in coordination of care (as documented) at patient's floor/unit and/or counseling patient:
[2025-10-14] MEDS: ENOXAPARIN SOD INJ 40 MG/0.4 ML SYRINGE SC (09:03)
[2025-10-14] MEDS: DOCUSATE SOD LIQD 100 MG/10 ML UDC PO ×2 (09:51→09:52)
--- NOTE | 2025-10-14 10:56 | PC.SS ---
WET POUR SUPERVISOR met with patient to discuss elevated score on post screening. Patient denied presence of depressive symptoms. Patient stated misunderstanding questions on assessment. Patient denies current intent/plan of SI/HI. Patient reiterated to WET POUR SUPERVISOR that she is not experiencing any post depression symptoms. Patient informed WET POUR SUPERVISOR of current possession of resources that WET POUR SUPERVISOR provided to the patient yesterday. Patient confirmed if resources required gina reach out to respective community agency. Patient's friend, Kaitlyn Loredo; will be transporting the patient home. WET POUR SUPERVISOR updated bedside nurse.
== END 2025-10-14 11:05 | disposition home or self-care (01) | DRG 540 ==
LOC: S4SX 11:15 → S4NX 12:23
PROVIDERS: Admitting Provider Obstetrics & Gynecology; Visit Provider Obstetrics & Gynecology
PROC: 10D00Z1 Extraction of Products of Conception, Low, Open Approach (ICD-10-PCS; CPT 59514; principal; 2025-10-12 12:30)
DX: O34.211 Maternal care for low transverse scar from previous cesarean delivery (principal); Z3A.39 39 weeks gestation of pregnancy; Z37.0 Single live birth; Z59.82 Transportation insecurity; O99.214 Obesity complicating childbirth; O26.843 Uterine size-date discrepancy, third trimester; F19.10 Other psychoactive substance abuse, uncomplicated; O99.324 Drug use complicating childbirth
CPT/HCPCS: 36415; 80307; 85025; 86780; 86850; 86900; 86901; A4217; A4314; A4649; J0689; J1650; J1885; J2210; J2274; J2371; J2590; J2765; J3010; J3290; J3490; P9045; S0191; A9270; J2270